=== PATIENT | male | born 1960 | race Caucasian/White ===

== ENCOUNTER 2025-03-29 13:18 | Emergency (ER) | payer MEDICARE, SELFPAY ==
[2025-03-29 13:23] VITALS: BP 179/95
--- NOTE | 2025-03-29 14:45 | ED.MUSCINJ ---
HPI-Injury
General
Chief Complaint: Fall
Source: patient
Exam Limitations: none
Time Seen by Provider: 03/29/25 14:31
History of Present Illness-Injury
Initial Injury comments:
64-year-old male not anticoagulated presents for evaluation for possible head injury he sustained 2 nights ago. He was intoxicated and fell down the steps. No loss of conscious. Since then he is had brain fog has a headache. Denies neck or back
pain. No abdominal chest or arm or leg pain. No other complaints
Phy Exam
Physical Exam
Physical Exam:
General: Well-appearing male no acute respiratory distress
HEENT normal cephalic TMs normal pupils equal round reactive to light no obvious scalp abrasion or hematoma
Musculoskeletal exam: The spine is nontender. The chest wall is nontender good range of motion all extremities
Abdomen is soft no ecchymosis or swelling nontender
Heart: Regular rate and rhythm
Lungs: Clear no wheeze
Injury Course
Orders/Labs/Results
Orders:
Orders
03/29/25 14:41
CT Head W/o Iv Contrast Urgent
Comment:
Reason For Exam: fall
MDM/Problems Addressed
Differential Diagnosis Includes:
Patient with fall potential head injury. CT head was ordered to evaluate for fracture or intracranial hemorrhage. No bony tenderness on exam otherwise.
*Pulse Oximetry
SaO2: 98
Patient hypoxic: no
*Critical Care Note
Total Time (30-74mins, 75-104mins- exclusive of procedures): Not Applicable
Update Note
Update Note:
CT head reviewed and is negative for acute intracranial hemorrhage. Patient reassured concussion precautions given
ED Attending Note
-
Portions of this chart may have been created with voice recognition software.� Occasional wrong word or��sound alike� substitutions may have occurred due to the inherent limitations of voice recognition software.
Discharge Plan
Departure
Patient Disposition: Home (Routine Discharge)
Date of Disposition: 03/29/25
Time of Disposition: 15:22
Patient with high blood pressure during this ER visit?: No
Discharge Problem:
Head injury
Instructions: Concussion, Adult (DC)
Referrals:
Braden Hadadd MD [Family Provider, Internal Medicine]
Activity Restrictions/Additional Instructions:
Rest. Avoid excessive physical or cognitive activity. Return if worse. You may take Tylenol or ibuprofen for pain.
Interventions
Interventions:
*General Assessment Last Done: 03/29/25 13:22
*Neglect/Abuse Screening Last Done: 03/29/25 13:22
*ED COVID-19 Vaccine History Last Done: 03/29/25 13:22
*ED Influenza Vaccine History Last Done: 03/29/25 13:22
[facility] Fall Risk Assessment Tool Last Done: 03/29/25 13:57
*Risk Screen - Suicide (C-SSRS) Last Done: 03/29/25 13:22
*Nursing Disposition Last Done: 03/29/25 16:28
ED-Musculoskeletal Assessment Last Done: 03/29/25 13:58
ED- Neurological Assessment Last Done: 03/29/25 13:57
ED-Skin Assessment Last Done: 03/29/25 13:58
Discharge Date and Time
Discharge Date/Time: 03/29/25 16:29
Print Language: SERBIAN
[2025-03-29 15:31] VITALS: BP 135/89
== END 2025-03-29 16:29 | disposition home or self-care (01) ==
LOC: EMR 13:18
PROVIDERS: EMERGENCY PHYSICIAN Student in an Organized Health Care Education/Training Program; FAMILY PHYSICIAN Internal Medicine
DX: S09.90XA Unspecified injury of head, initial encounter (principal); W10.9XXA Fall (on) (from) unspecified stairs and steps, initial encounter
CPT/HCPCS: 99284; 70450